=== PATIENT | male | born 1965 | race Caucasian/White ===

== ENCOUNTER → 2020-06-18 13:00 | Outpatient (CLI) | payer BC, SELFPAY ==
[2020-06-18 13:28] VITALS: BMI 41.2
== END ==
PROVIDERS: PCP Family Medicine; Visit Provider Nurse Practitioner
DX: Z02.1 Encounter for pre-employment examination (principal); Z11.1 Encounter for screening for respiratory tuberculosis
CPT/HCPCS: 86580

== ENCOUNTER → 2020-08-12 10:26 | Outpatient (CLI) | payer BC, SELFPAY ==
--- NOTE | 2020-08-12 10:32 | XR_ITS ---
PROCEDURE: XR ANKLE LT MIN 3V CLINICAL INDICATION: LT ANKLE PAIN COMPARISON: No exams were available for comparison FINDINGS: No fracture or dislocation. The joint space is well preserved. Minimal hypertrophic changes are present at the distal aspect of the medial malleolus and at the medial aspect of the talus just distal to the lateral malleolar region. Faint lucency is present projecting over the distal shaft of the tibia at 7 mm nonspecific. Stability may be confirmed with follow-up. IMPRESSION: Mild degenerative changes, no acute finding. Please see above for detail. Nonspecific lucency distal shaft of the tibia. Stability may be confirmed with follow-up Dictated by: Suman Babin MD 08/12/2020 15:34 Suman Babin MD in [place] 08/12/2020 15:34
== END ==
PROVIDERS: PCP Family Medicine; Visit Provider Family Medicine
DX: M25.572 Pain in left ankle and joints of left foot (principal)
CPT/HCPCS: 73610

== ENCOUNTER → 2021-09-08 15:02 | Outpatient (CLI) | payer BC, SELFPAY ==
[2021-09-08 16:06] LABS: Basophils # 0.1 K/mm3 (0-0.2); Basophils % 1.1 % (0.1-2.0); Eosinophils # 0.2 K/mm3 (0.0-0.4); Eosinophils % 2.5 % (0.1-12.0); Hematocrit 53.9 % (42.0-52.0); Lymphocytes # 1.8 K/mm3 (0.7-4.5); Lymphocytes % 22.3 % (10-50); Mean Corpuscular HGB Conc 33.4 g/dL (31.8-35.4); Mean Corpuscular Hemoglobin 29.7 pg (27.0-31.2); Mean Corpuscular Volume 88.9 fl (80-94); Mean Platelet Volume 8.9 fl (7.4-10.4); Monocytes # 0.5 K/mm3 (0.1-1.0); Monocytes % 6.5 % (1.7-9.3); Neutrophils # 5.4 K/mm3 (1.8-7.8); Neutrophils % 67.6 % (37.0-80.0); Platelet Count 253 K/mm3 (142-424); Red Blood Count 6.06 M/mm3 (4.60-6.20); Red Cell Distribution Width 13.8 % (11.5-17.5)
== END ==
PROVIDERS: PCP Family Medicine; Visit Provider Family Medicine
DX: Z20.822 Contact with and (suspected) exposure to COVID-19 (principal)
CPT/HCPCS: 36415; 85025; C9803; U0003; U0005

== ENCOUNTER → 2021-09-24 07:20 | Outpatient (CLI) | payer BC, SELFPAY | PROVIDERS: PCP Family Medicine; Visit Provider Family Medicine | DX: Z20.822 Contact with and (suspected) exposure to COVID-19 (principal) | CPT/HCPCS: C9803; U0003; U0005 ==

== ENCOUNTER → 2022-03-22 08:15 | Outpatient (CLI) | payer BC, SELFPAY | PROVIDERS: PCP Family Medicine; Visit Provider Family Medicine | DX: Z20.822 Contact with and (suspected) exposure to COVID-19 (principal) | CPT/HCPCS: C9803; U0003; U0005 ==